=== PATIENT | female | born 1960 | race Hispanic/Latino ===

== ENCOUNTER 2020-09-26 07:30 | Emergency (ER) | payer OTHER ==
[2020-09-26] MEDS ORDERED: LIDOCAINE 1% W/EPI 1:100,000 MDV 20 ML VIAL ONE (08:14)
[2020-09-26] MEDS ORDERED: BUPIVACAINE 0.5% PF 10 ML VIAL ONE (08:14)
[2020-09-26] MEDS ORDERED: TETANUS & DIPHTHERIA TOX,ADULT 0.5 ML VIAL ONE (08:15)
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
[2020-09-26 08:58] LABS: Absolute Lymphocytes (CBC) 2.3 K/uL (0.7-4.9); Basophils % 0.5 % (0-1.3); Hematocrit 40.3 % (36.0-45.0); Lymphocytes % 20.2 % (15.3-44.8); MPV 8.1 fL (7.6-11.3); RBC Red Blood Cell Count 4.35 M/uL (3.86-4.86)
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
[2020-09-26 09:19] LABS: Potassium 2.6 mmol/L (3.5-5.1)
[2020-09-26] MEDS ORDERED: NA CHLORIDE 0.9% 500 ML ONE (10:15)
[2020-09-26] MEDS ORDERED: KCL 20 MEQ/100 mL IVPB 20 MEQ/100 ML BAG IV ONE (10:15)
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
[2020-09-26 12:26] VITALS: TEMP 98.1; O2SAT 98
[2020-09-26 12:27] VITALS: BP 106/87
== END 2020-09-26 12:20 | disposition home or self-care (01) ==
LOC: ER 07:30
PROC: 0JQP0ZZ Repair Left Lower Leg Subcutaneous Tissue and Fascia, Open Approach (ICD-10-PCS; principal; 2020-09-26)
DX: S82.292A Other fracture of shaft of left tibia, initial encounter for closed fracture (principal); M79.18 Myalgia, other site; V47.5XXA Car driver injured in collision with fixed or stationary object in traffic accident, initial encounter; Z23 Encounter for immunization; I10 Essential (primary) hypertension
CPT/HCPCS: 96365; 85025; 80048; 36415; 70450; 71250; 72125; 73590; 90471; 90714; 99284; 96366; 12002; J3480; J7040; G0390